=== PATIENT | female | born 1990 ===

== ENCOUNTER 2018-02-12 20:55 | Inpatient (IN) | payer MEDICAID, SELFPAY ==
[2018-02-12] MEDS: Lactated Ringer's 1,000 ML IV SCH (21:10)
[2018-02-12 21:31] VITALS: BMI 26.1
[2018-02-12 22:12] LABS: BASO % 0.4 % (0.0-2.0); EOS % 0.4 % (0.0-4.0); HEMOGLOBIN 11.9 g/dL (12.0-16.0); LYMPH # 1.6 K/uL (1.0-4.3); LYMPH % 17.9 % (20.0-40.0); MEAN CELL VOLUME 96.1 fl (81.0-99.0); MEAN CORPUSCULAR HEMOGLOBIN 32.4 pg (27.0-31.0); MEAN CORPUSCULAR HGB CONC 33.7 g/dL (33.0-37.0); MONO # 0.6 K/uL (0.0-0.8); MONO % 6.5 % (0.0-10.0); NEUT # 6.8 K/uL (1.8-7.0); NEUT % 74.8 % (50.0-75.0); RBC 3.69 Mil/uL (3.80-5.20); WHITE BLOOD COUNT 9.1 K/uL (4.8-10.8)
[2018-02-13 00:39] VITALS: O2SAT 99
[2018-02-13] MEDS ORDERED: Nalbuphine HCL 10 mg/ml Ampule IVP PRN (00:54)
[2018-02-13] MEDS: Lactated Ringer's 1,000 ML IV ONE ×2 (00:54→09:45)
--- NOTE | 2018-02-13 07:16 | OBADHP ---
Datetime: 02/12/2018 21:33 Admit Comment, IP Provider: 27 y/o with EGA of 39.6 weeks, SARA 02/13/18 who presents to EDOB today instructed by her Primary Care Provider to initiate Induction of labor, patient reports that sh e was referred to [facility] due to anemia and mild thrombocytopenia and for this reason the recommendation is IOL. The patient also reports since 12 AM today mild pelvic pain and pressure in the lower abdomen associated with CONTX that is intermittent, last approximately 4 min and happens Q15 min. Patient re ports positive FM, and denies vaginal bleeding or LOF. Patient also denies [place], blurry vision, palpita tions, leg pain, upper abdominal pain, N/V, recent trauma, recent sexual activity in last MO. Obtainsuzette alvarez from care hx: patient received treatment with Flagyl 500 BID x 7 days, for malodorous vagi nal discharge + BV(treatment given until last week) OBGYN: Patient is , LMP 05/09/17. Menarche: 15 y/o. Patient reports her first was NVD by IOL. ROS: Unremarkable, except as per HPI. Care Provider: Dr Lo at [facility]. PMHx: Denies FMHx: Denies SurgHX: None SocialHx: Denies tobacco/Rec drugs/ETOH use Allergies: NKA. MEDS: PNV LABS: HIV first Trim negative, HBsAg nonreactive, GBS done on 01/20/18 no growth, Rubella: +/immune , GC/CL nonreactive, RPR nonreactive, ABO: O+ Assessment/Plan The patient is with EGA39.6, SARA 02/13/18 with hx of anemia and thrombocytopenia during her current requiring f/u by [facility], who presents for IOL 02/12/18 labs:H/H 11.9/35.4 wbc9.1, plt 129 -Admit to L_D -Initiate Maternal VS and FHR trace monitoring -Hydration with IVF LR -CBC w/diff, Type and screen -Anesthesia eval for possible epidural and pain management -Initiate IOL w/ Cervidil 10 mg vaginal x1 Case seen and discussed with attending Dr Kan.Epifanio Quintana MD PGY1 ob attending addendum: pt seen _ examined by me w/ dr quintana. agree with above assessment and plan. process of induction d/w pt Pelvic Type - PN: Adequate Extremities - PN: Normal Abdomen - PN: Normal Lungs - PN: Normal Heart - PN: Normal HEENT - PN: Normal General - PN: Normal FHR - Baseline A Provider: 145 Membranes, Provider: Intact Contraction Comments Provider: occasional Comments, ACOG Physical Exam: GEN: NAD HEENT: Normocephalic, EOMI RESP: CTA b/l CV: RRR, S1 S2 present, no murmurs noted ABD: Gravid, soft, no tendernss to palpation LE: No edema, Heri's negative, no clonus IP Hx Assessment: The History has been Reviewed and is Current Vital Signs Provider: Reviewed NICHD Variability Prov Fetus A: Moderate 6-25bpm NICHD Accel Fetus A IP Provider: [id number] FHR Category Provider Fetus A: Category I NICHD Decel Fetus A IP Provider: None Dilatation, Provider: 2 Effacement, Provider: 30 Station, Provider: -3 Genitourinary Exam: Normal IP Adm Impression: Term, intrauterine IP Admit Plan: Admit to unit; Initiate labor induction protocol Datetime: 02/12/2018 21:18 Presentation-Admit: Vertex IP Chief Complaint: Uterine contractions
[2018-02-13] MEDS ORDERED: OXYTOCIN/0.9 % NS 20 UNIT/1,000 ML BAG IV SCH (10:00)
[2018-02-13] MEDS ORDERED: Fentanyl/Bupivacaine HCl 250 ML EPI ONE (10:34)
[2018-02-13] MEDS: Lactated Ringer's 1,000 ML IV SCH ×2 (11:00→14:58)
[2018-02-13] MEDS ORDERED: Bupivacaine HCl 0.5% PF (30 ml) Inj ONE (18:32)
[2018-02-13] MEDS ORDERED: Lidocaine Hydrochloride 10 ML INJ ONE (19:18)
[2018-02-13] MEDS ORDERED: Benzocaine/Menthol SPRAY TOP PRN (20:57)
[2018-02-14 06:24] LABS: BASO % 0.2 % (0.0-2.0); EOS % 0.2 % (0.0-4.0); HEMOGLOBIN 9.7 g/dL (12.0-16.0); LYMPH # 1.8 K/uL (1.0-4.3); MEAN CELL VOLUME 96.3 fl (81.0-99.0); MEAN CORPUSCULAR HEMOGLOBIN 31.9 pg (27.0-31.0); MEAN CORPUSCULAR HGB CONC 33.1 g/dL (33.0-37.0); MEAN PLATELET VOLUME 12.5 fl (7.2-11.7); MONO # 0.8 K/uL (0.0-0.8); MONO % 6.2 % (0.0-10.0); NEUT # 10.2 K/uL (1.8-7.0); NEUT % 79.4 % (50.0-75.0); RBC 3.04 Mil/uL (3.80-5.20); WHITE BLOOD COUNT 12.8 K/uL (4.8-10.8)
--- NOTE | 2018-02-14 09:38 | OBPPN ---
Datetime: 02/14/2018 06:29 PP Pain Prov: Within normal limits PP Nausea Prov: Denies PP BM Prov: No PP Comments Phys Exam Prov: see progress note PP Impression Prov: Normal progression PP Plan Prov: Continue present management PP Progress Note Prov: 27 y/o now s/p , seen and examined this morning in her PPD1. Patient reports mild pelvic pain that gets relief with pain medication, she is ambulating w/o dizziness, sophie erating eating regular food, voiding well w/o difficulties, is passing gas, no BM yet after delivery, she reports that lochia is less than menses in volume already. Patient denies [place], chills, fever, cou gh, palpitations, chest pain, SOB, abdominal pain, calf pain. Patient states she is and bottle-feeding baby. Physical Exam GEN: NAD HEENT: Normocephalic, mucous membrane moist, EOMI RESP: CTA b/l CV: RRR, no murmurs noted ABD: Soft, no tender, uterus firm at umbilicus level LE: No edema, Heri's negative A/P 27 y/o s/p today going into her PPD1 with adequate progression Continue post- monitoring and management -Motrin 600 PO Q6h PRN pain -Encourage , ambulation -D/C planning Jared Rocha MD PGY1 Attenidng addendum: I saw and examined the patient myself this morning at bedside. I reviewed the resident note above and agree with findings and management. Normal progression. Patient undecided about circumcision, risks vs benefits dis cussed in detail. Anticipate DC tomorrow. pp f/u w/ Dr. Swift in 4-6wks. Vital Signs Provider PP: Reviewed
--- NOTE | 2018-02-14 10:06 | OBDS ---
DELIVERY PERSONNEL Delivery Doctor: Diane Ball MD Cooler Conveyor Loader: Gabrielle Marr RN/ Jared Sahu RN Anesthesiologist: Marilia Persaud MD Resident: Dr Jared Rocha MATERNAL INFORMATION Delivery Anesthesia: Local; Epidural Medications in Delivery: Pitocin Estimated Blood Loss (ml): 400 Placenta Cultured: No Maternal Complications: None Provider Comments: Patient delivered viable male via PABLO position. Infant with Apgars of 9 an d 9 at one and 5 minutes respectively. 9 lbs. 14 oz. Due to temporary shoulder dystocia during delivery, patient placed in Sidney position, applied suprapubic pressure, internal rotation of the posterior shoulder. After these maneuvers, deliv ered atraumatically without complication. Placenta delivered spontaneously. Laceration repaired, as above. Uterus firm and appropriately hem ostatic following delivery. Patient tolerated delivery and repair well. Welder Apprentice Combination present to evalu ate infant. Estimated blood loss 400 mL. LABOR SUMMARY EDC: 02/13/2018 00:00 No. Babies in Womb: 1 Attempted: No Labor Anesthesia: Epidural LABOR INFORMATION Reason for Induction: Other Reason for Induction Other: Mild Thrombocytopenia Onset of Labor: 02/13/2018 11:30 Complete Dilatation: 02/13/2018 20:00 Cervical Ripening Agents: Cervidil Oxytocin: Augmentation Group B Beta Strep: Negative Antibiotics # of Doses: 0 Antibiotics Time of Last Dose: 0 Steroids Given: None Reason Steroids Not Administered: Not Applicable Other Reason Not Administered: N/A MEMBRANES Membranes Rupture Method: Artificial Rupture of Membranes: 02/13/2018 16:30 Length of Rupture (hrs): 3.83 Amniotic Fluid Color: Clear Amniotic Fluid Amount: Small Amniotic Fluid Odor: Normal STAGES OF LABOR Stage 1 hrs: 8 Stage 1 min: 30 Stage 2 hrs: 0 Stage 2 min: 20 Stage 3 hrs: 0 Stage 3 min: 19 Total Time in Labor hrs: 9 Total Time in Labor min: 9 VAGINAL DELIVERY Episiotomy: None Laceration Extension: Second Degree Laceration Type: Perineal Laceration Repair: Yes Laceration Repair Note: Second-degree midline perineal laceration. Area infiltrated with 2% lidocain e. Laceration repaired with 2-0 repeat without complication. She tolerated repair well. Initial Vag Sponge Count: 5 laps + 20 4x4's Final Vag Sponge Count: 5 laps + 20 4x4's Initial Vag Sharps Count: 4 Final Vag Sharps Count: 4 Sponge Count Correct: Yes Sharps Count Correct: Yes Count Comment: Count correct and MD acknowledged BABY A INFORMATION Infant Delivery Date/Time: 02/13/2018 20:20 Method of Delivery: Vaginal Born in Route : No : N/A Forceps: N/A Vacuum Extraction: N/A Shoulder Dystocia : Yes SHOULDER DYSTOCIA BABY A Delivery of Head: 02/13/2018 20:18 Infant Delivery Date/Time: 02/13/2018 20:20 Time Head to Delivery : 2.0 1st Intervention to Resolve: McRobert's Maneuver 2nd Intervention to Resolve: Suprapubic Pressure Verify NO Fundal Pressure: No Fundal Pressure Applied Arm Under Symphisis at Del: Left PRESENTATION/POSITION BABY A Presentation: Cephalic Cephalic Presentation: Vertex Breech Presentation: N/A PLACENTA INFORMATION BABY A Placenta Delivery Time : 02/13/2018 20:39 Placenta Method of Delivery: Spontaneous Placenta Status: Delivered SCORES BABY A Heart Rate 1 min: >100 bpm Resp Effort 1 min: Good Cry Reflex Irritability 1 min: Cough or Sneeze or Pulls Away Muscle Tone 1 min: Active Motion Color 1 min: Body [place], Extremities Blue Resuscitation Effort 1 min: Tactile Stimulation SCORE 1 MIN: 9 Heart Rate 5 min: >100 bpm Resp Effort 5 min: Good Cry Reflex Irritability 5 min: Cough or Sneeze or Pulls Away Muscle Tone 5 min: Active Motion Color 5 min: Body [place], Extremities Blue Resuscitation Effort 5 min: N/A SCORE 5 MIN: 9 INFORMATION BABY A Gestational Age at Delivery: 40.0 Gestational Status: Term Infant Outcome : Liveborn Condition : Stable Sex: Male IDENTIFICATION/MEDS BABY A ID Band Number: [id number] ID Band Location: Left Leg; Left Arm Vitamin K Given : Not Given Erythromycin Given: Not Given WEIGHT/LENGTH BABY A Birthweight (gms): 4485 Infant Weight (lb): 9 Infant Weight (oz): 14 CORD INFORMATION BABY A No. Cord Vessels: 3 Nuchal Cord : N/A Nuchal Cord Other: 0 True Knot: 0 Cord pH Baby Arterial: 7.27 Cord Blood Taken: Yes Banking/Donate Info: N/A Infant Suction: Mouth; Nose ASSESSMENT BABY A Complications: None Physical Findings at Delivery: Within Normal Limits Infant Respirations: Appears Normal Dairy Frozen Manager/ALS Called : No Care By: Dr West Transferred To: Remains with Mother
--- NOTE | 2018-02-14 10:09 | OBDS ---
DELIVERY PERSONNEL Delivery Doctor: Diane Ball MD Dairy Store Manager: Gabrielle Marr RN/ Jared Sahu RN Anesthesiologist: Mariila Persaud MD Resident: Dr Jared Rocha MATERNAL INFORMATION Delivery Anesthesia: Local; Epidural Medications in Delivery: Pitocin Estimated Blood Loss (ml): 400 Placenta Cultured: No Maternal Complications: None Provider Comments: Patient delivered viable male via PABLO position. Infant with Apgars of 9 an d 9 at one and 5 minutes respectively. 9 lbs. 14 oz. Due to temporary shoulder dystocia during delivery, patient placed in Sidney position, applied suprapubic pressure, internal rotation of the posterior shoulder. After these maneuvers, deliv ered atraumatically without complication. Placenta delivered spontaneously. Laceration repaired, as above. Uterus firm and appropriately hem ostatic following delivery. Patient tolerated delivery and repair well. Dog Raiser present to evalu ate infant. Estimated blood loss 400 mL. LABOR SUMMARY EDC: 02/13/2018 00:00 No. Babies in Womb: 1 Attempted: No Labor Anesthesia: Epidural LABOR INFORMATION Reason for Induction: Other Reason for Induction Other: Mild Thrombocytopenia Onset of Labor: 02/13/2018 11:30 Complete Dilatation: 02/13/2018 20:00 Cervical Ripening Agents: Cervidil Oxytocin: Augmentation Group B Beta Strep: Negative Antibiotics # of Doses: 0 Antibiotics Time of Last Dose: 0 Steroids Given: None Reason Steroids Not Administered: Not Applicable Other Reason Not Administered: N/A MEMBRANES Membranes Rupture Method: Artificial Rupture of Membranes: 02/13/2018 16:30 Length of Rupture (hrs): 3.83 Amniotic Fluid Color: Clear Amniotic Fluid Amount: Small Amniotic Fluid Odor: Normal STAGES OF LABOR Stage 1 hrs: 8 Stage 1 min: 30 Stage 2 hrs: 0 Stage 2 min: 20 Stage 3 hrs: 0 Stage 3 min: 19 Total Time in Labor hrs: 9 Total Time in Labor min: 9 VAGINAL DELIVERY Episiotomy: None Laceration Extension: Second Degree Laceration Type: Perineal Laceration Repair: Yes Laceration Repair Note: Second-degree midline perineal laceration. Area infiltrated with 2% lidocain e. Laceration repaired with 2-0 repeat without complication. She tolerated repair well. Initial Vag Sponge Count: 5 laps + 20 4x4's Final Vag Sponge Count: 5 laps + 20 4x4's Initial Vag Sharps Count: 4 Final Vag Sharps Count: 4 Sponge Count Correct: Yes Sharps Count Correct: Yes Count Comment: Count correct and MD acknowledged BABY A INFORMATION Infant Delivery Date/Time: 02/13/2018 20:20 Method of Delivery: Vaginal Method of Delivery: Vaginal Born in Route : No : N/A Forceps: N/A Vacuum Extraction: N/A Shoulder Dystocia : Yes SHOULDER DYSTOCIA BABY A Delivery of Head: 02/13/2018 20:18 Delivery Date/Time: 02/13/2018 20:20 Time Head to Delivery : 2.0 1st Intervention to Resolve: McRobert's Maneuver 2nd Intervention to Resolve: Suprapubic Pressure Verify NO Fundal Pressure: No Fundal Pressure Applied Arm Under Symphisis at Del: Left PRESENTATION/POSITION BABY A Presentation: Cephalic Presentation: Cephalic Presentation: Cephalic Cephalic Presentation: Vertex Breech Presentation: N/A PLACENTA INFORMATION BABY A Placenta Delivery Time : 02/13/2018 20:39 Placenta Method of Delivery: Spontaneous Placenta Status: Delivered SCORES BABY A Heart Rate 1 min: >100 bpm Resp Effort 1 min: Good Cry Reflex Irritability 1 min: Cough or Sneeze or Pulls Away Muscle Tone 1 min: Active Motion Color 1 min: Body [place], Extremities Blue Resuscitation Effort 1 min: Tactile Stimulation SCORE 1 MIN: 9 Heart Rate 5 min: >100 bpm Resp Effort 5 min: Good Cry Reflex Irritability 5 min: Cough or Sneeze or Pulls Away Muscle Tone 5 min: Active Motion Color 5 min: Body [place], Extremities Blue Resuscitation Effort 5 min: N/A SCORE 5 MIN: 9 INFORMATION BABY A Gestational Age at Delivery: 40.0 Gestational Status: Term Outcome : Liveborn Condition : Stable Sex: Male Sex: Male IDENTIFICATION/MEDS BABY A ID Band Number: [id number] ID Band Location: Left Leg; Left Arm Vitamin K Given : Not Given Erythromycin Given: Not Given WEIGHT/LENGTH BABY A Birthweight (gms): 4485 Weight (lb): 9 Infant Weight (oz): 14 CORD INFORMATION BABY A No. Cord Vessels: 3 Nuchal Cord : N/A Nuchal Cord Other: 0 True Knot: 0 Cord pH Baby Arterial: 7.27 Cord Blood Taken: Yes Banking/Donate Info: N/A Infant Suction: Mouth; Nose ASSESSMENT BABY A Infant Complications: None Physical Findings at Delivery: Within Normal Limits Respirations: Appears Normal Osd Clerk/ALS Called : No Care By: Dr West Transferred To: Remains with Mother
--- NOTE | 2018-02-15 11:20 | OBDCSUM ---
Datetime: 02/15/2018 06:24 Discharged to, Provider: Home Follow up at, Provider: Sangeetha Disch Instr Activity: Normal activity Disch Instr Diet: Regular Discharge Instructions, Provider: Routine instructions given Discharge Diagnosis, Provider: Term Delivered Discharge Time: 02/15/2018 10:00 Follow up in weeks, Provider: 6 weeks Disch Referrals: None Contraception discussed, Prov: Yes Disch Activity Restrictions: No exercising; No lifting; No sexual activity; Nothing in vagina - Inte rcourse, tampons, douche Discharge Comment, Provider: 27 y/o , s/p at 40 weeks on 02/13/18 at 20:20, delivered a baby boy, Wt 4485 with 9/9. The patient is ambulating, tolerating oral food, lochis is less jean-paul me nses, had a BM x1, voiding well. Patient denies [place], chest pain, SOB, palpitations, cough, calf pain. The patient is in her PPD2 with normal progression and stable to D/C home. Physical Exam GEN: NAD HEENT:Normocephalic,EOMI. RESP:CTA b/l CV: RRR, no murmurs noted ABD: soft, non-tender, uterus firm below umbilicus. LE: No edema, Heri's negative. D/C instructions -Encourage and ambulation. -Ibuprofen 600 mg PO 1 tab PO Q6h for pain PRN -Discharge today -Ambulate w/ caution, no heavy lifting, if bleeding, fever, abdominal pain without relief from Tyl enol or Ibuprofen go to ED - Instructions given for F/U with PMD visit within 4 to 6 weeks. Jared Rocha MD PGY1 OB Attending covering 8am - 10am... On rounds I saw this patient. Agree with note MAHNDO Contraception after Delivery: Control Pill/Patch
--- NOTE | 2018-02-15 11:20 | OBPPN ---
Datetime: 02/15/2018 06:21 PP Pain Prov: Within normal limits PP Nausea Prov: Denies PP BM Prov: Yes PP Comments Phys Exam Prov: See progress note PP Progress Note Prov: 27 y/o now s/p , seen and examined this morning in her PPD2. Patient reports mild pelvic pain that gets relief with pain medication, she is ambulating w/o dizziness, sophie erating eating regular food, voiding well w/o difficulties, already had a BM x1, she reports that loc hia is less than menses in volume already. Patient denies [place], chills, fever, cough, palpitations, jabari st pain, SOB, abdominal pain, calf pain. Patient states she is and bottle-feeding baby. Physical Exam GEN: NAD HEENT: Normocephalic, mucous membrane moist, EOMI RESP: CTA b/l CV: RRR, no murmurs noted ABD: Soft, no tender, uterus firm at umbilicus level LE: No edema, Heri's negative A/P 27 y/o s/p today going into her PPD2 with normal progression Continue post- monitoring -Motrin 600 PO Q6h PRN pain -Encourage , ambulation -D/C home today with f/u in 4 to 6 weeks with PMD. Jared Rocha MD PGY1 OB Attending covering 8am - 10am... On rounds I saw this patient. Agree with note MARGE Vital Signs Provider PP: Reviewed; Within Normal Limits
[2018-02-15 19:11] VITALS: BP 113/65; PULSE 83; RESP 19; TEMP 98.6
== END 2018-02-15 14:40 | disposition home or self-care (01) | DRG 373 ==
LOC: H.L&D 21:31 → H.OB/GYN 02-13 23:14
PROVIDERS: ADMIT Obstetrics & Gynecology; ATTEND Obstetrics & Gynecology
PROC: 4A1HXCZ Monitoring of Products of Conception, Cardiac Rate, External Approach (ICD-10-PCS; 2018-02-12)
PROC: 0KQM0ZZ Repair Perineum Muscle, Open Approach (ICD-10-PCS; principal; 2018-02-14)
PROC: 10E0XZZ Delivery of Products of Conception, External Approach (ICD-10-PCS; 2018-02-14)
DX: O70.1 Second degree perineal laceration during delivery (principal); D69.6 Thrombocytopenia, unspecified; O99.02 Anemia complicating childbirth; Z3A.40 40 weeks gestation of pregnancy; Z37.0 Single live birth; O99.12 Other diseases of the blood and blood-forming organs and certain disorders involving the immune mechanism complicating childbirth; O66.0 Obstructed labor due to shoulder dystocia